=== PATIENT | female | born 1955 | race Caucasian/White ===

== ENCOUNTER → 2020-03-07 | Outpatient (CLI) | payer MEDICARE, OTHER ==
[~2020-03-07] MED LIST: CYCLOBENZAPRINE10 MG PO
== END ==
LOC: KOH-I 16:02
DX: M54.5 Low back pain (principal); M41.86 Other forms of scoliosis, lumbar region; M47.816 Spondylosis without myelopathy or radiculopathy, lumbar region
CPT/HCPCS: 72110

== ENCOUNTER → 2021-05-08 | Outpatient (CLI) | payer MEDICARE ==
[~2021-05-08] MED LIST changes: +CALCIUM + VITA1 EACH PO; +DAILY VALUE1 EACH PO; +MOBIC15 MG PO; +ROPINIROLE HCL1 MG PO; +TRIAMTERENE-HC1 EAC1 PO
[2021-05-08 11:41] LABS: HEMOGLOBIN 12.6 gm/dl (12.3-15.3); RED BLOOD COUNT 5.05 M/UL (4.00-5.10); WHITE BLOOD COUNT 5.9 K/UL (4.5-11.0)
[2021-05-08 12:20] LABS: BUN/CREATININE RATIO 14 (0-10)
== END ==
LOC: EDSTATUS 10:00 → OPSV2 10:00
PROVIDERS: Orthopaedic Surgery
DX: Z01.812 Encounter for preprocedural laboratory examination (principal)
CPT/HCPCS: 36415; 80048; 85025

== ENCOUNTER → 2021-05-21 | Outpatient (CLI) | payer MEDICARE, OTHER ==
[~2021-05-21] MED LIST changes: +ASPIR-TRIN325 MG PO; +HYDROCODON-ACE1 EAC6 PO
[2021-05-21 14:06] LABS: BUN/CREATININE RATIO 7 (0-10)
== END ==
LOC: LAB 12:09
PROVIDERS: Orthopaedic Surgery
DX: Z01.812 Encounter for preprocedural laboratory examination (principal)
CPT/HCPCS: 36415; 80048; 86850; 86900; 86901

== ENCOUNTER 2021-05-22 05:58 | Day surgery (SDC) | payer MEDICARE, OTHER ==
[~2021-05-22] VITALS: Ht 165.1 cm; Wt 106.6 kg
[~2021-05-22 05:58] MED LIST changes: -ASPIR-TRIN325 MG PO; -HYDROCODON-ACE1 EAC6 PO
[2021-05-23] MEDS ORDERED: ASPIR-TRIN325 MG PO (10:06)
[2021-05-23] MEDS ORDERED: HYDROCODON-ACE1 EAC6 PO (10:06)
== END 2021-05-23 14:28 | disposition home or self-care (01) ==
LOC: M/S 05:58 → OR 05:58 → EDSTATUS 08:45 → OR 08:45 → M/S 12:45 → OR 05-23 14:28
DX: M16.12 Unilateral primary osteoarthritis, left hip (principal); I10 Essential (primary) hypertension; E78.5 Hyperlipidemia, unspecified; Z98.51 Tubal ligation status; Z56.0 Unemployment, unspecified; G25.81 Restless legs syndrome; Z79.82 Long term (current) use of aspirin
CPT/HCPCS: 73502; 76000; 97116-GP-CQ; 97162; 97166; 97530-GP-CQ; 97535; C1776; J0690; J1100; J2001; J2250; J2370; J2405; J2704; J2795; J7050; J7120; P9045

== ENCOUNTER 2021-05-26 23:02 | Emergency (ER) | payer MEDICARE ==
[~2021-05-26 23:02] MED LIST changes: +ASPIR-TRIN325 MG PO; +HYDROCODON-ACE1 EAC6 PO
== END 2021-05-27 04:04 | disposition expired ==
LOC: ER1 23:02
DX: I46.9 Cardiac arrest, cause unspecified (principal); I10 Essential (primary) hypertension; E78.5 Hyperlipidemia, unspecified; E66.01 Morbid (severe) obesity due to excess calories; Z96.642 Presence of left artificial hip joint
CPT/HCPCS: 31500; 71045; 82962; 92950; 93005; 94002; 99285; J0171; J0282; J0461; J2001; J3475; J7070